=== PATIENT | female | born 1955 | race Caucasian/White ===

== ENCOUNTER 2022-11-29 06:53 | Day surgery (SDC) | payer BC ==
[~2022-11-29 06:53] MED LIST: Acetaminophen 325 MG Tab PO SCH; EPINEPHrine 1 MG/ML SDV ONE; Ketamine 500 mg/10 ML MDV ONE; Ketorolac 30 MG/ML SDV ONE; Lactated Ringers 1,000 ML IV SCH; Lactated Ringers 1,000 ML ONE; Midazolam 1 MG/ML 2 ML SDV ONE; Morphine 8 MG, EPINEPHrine 0.3 MG, Cefuroxime 750 MG, Ketorolac 30 MG, Sodium Chloride ... PRN; Ondansetron 4 MG/2 ML SDV ONE; Pregabalin 25 MG Cap PO SCH; Propofol 200 MG/20 ML SDV ONE; Ropivacaine 0.5% 5 MG/ML 30 ML SDV ONE; Sodium Chloride 0.9% 10 ML Syringe FLUSH PRN; Sodium Chloride 0.9% 10 ML Syringe FLUSH SCH; ceFAZolin 2 GM Vial ONE; fentaNYL 100 MCG/2 ML SDV ONE; oxyCODONE ER 10 MG TAB.ER PO SCH
[2022-11-29] MEDS ORDERED: Vancomycin 1 GM SDV ONE (06:56)
[2022-11-29] MEDS ORDERED: Tranexamic Acid 1,000 MG/10 ML Vial ONE (06:56)
[2022-11-29] MEDS ORDERED: Ondansetron 4 MG/2 ML SDV IVPUSH PRN (08:30)
[2022-11-29] MEDS ORDERED: Midazolam 1 MG/ML 2 ML SDV IVPUSH PRN (08:30)
[2022-11-29] MEDS ORDERED: Phenylephrine 1% 10 MG/ML SDV IVPUSH PRN (08:30)
[2022-11-29] MEDS ORDERED: fentaNYL 100 MCG/2 ML SDV IVPUSH PRN (08:30)
[2022-11-29] MEDS ORDERED: HYDROmorphone 0.5 MG/0.5 ML Syringe IVPUSH PRN (08:30)
[2022-11-29] MEDS ORDERED: ePHEDrine 50 MG/ML SDV IVPUSH PRN (08:30)
[2022-11-29] MEDS ORDERED: diphenhydrAMINE 50 MG/ML SDV IVPUSH PRN (08:30)
[2022-11-29] MEDS ORDERED: Albuterol 0.083% 2.5 MG/3 ML Neb Soln NEB PRN (08:30)
[2022-11-29] MEDS ORDERED: Phenylephrine 1% 10 MG/ML SDV ONE (08:40)
[2022-11-29] MEDS ORDERED: Propofol 200 MG/20 ML SDV ONE (09:02)
[2022-11-29] MEDS ORDERED: Lactated Ringers 1,000 ML ONE (09:20)
[2022-11-29] MEDS ORDERED: ePHEDrine 50 MG/ML SDV ONE (09:20)
[2022-11-29] MEDS ORDERED: oxyCODONE 5 MG Tab PO PRN (09:41)
== END 2022-11-29 15:46 | disposition home or self-care (01) ==
LOC: JD.SDS 06:53
PROVIDERS: ATTEND Orthopaedic Surgery
DX: M17.11 Unilateral primary osteoarthritis, right knee (principal); G89.29 Other chronic pain; I10 Essential (primary) hypertension; K51.90 Ulcerative colitis, unspecified, without complications; Z88.2 Allergy status to sulfonamides; Z88.8 Allergy status to other drugs, medicaments and biological substances; Z79.899 Other long term (current) drug therapy; Z79.82 Long term (current) use of aspirin
CPT/HCPCS: 0055T; 27447; 64447; 73560; 97110; 97116; 97161; A9270; C1713; C1776; J0171; J0690; J0697; J1885; J2250; J2270; J2370; J2405; J2704; J2795; J3010; J3370; J3490; J7120; 01402; 01480